=== PATIENT | female | born 1970 | race Two or more races ===

== ENCOUNTER 2019-08-17 18:36 | Emergency (ER) | payer MEDICAID ==
[~2019-08-17] VITALS: Ht 165.1 cm; Wt 75.7 kg
[2019-08-17 18:44] VITALS: BP 134/75
--- NOTE | 2019-08-17 18:47 | NUR ---
HYPOGASTRIC PAIN X 3 DAYS, WITH DYSURIA, PT AWAKE, ALERT, -SOB, NAD NOTED, VSS, PENDINDG MD GLEASON
[2019-08-17 19:03] LABS: APPEARANCE,URINE Clear (CLEAR); BILIRUBIN,URINE Negative (NEGATIVE); BLOOD, URINE Negative Ery/uL (NEGATIVE); COLOR,URINE Yellow (YELLOW); KETONES,URINE Negative (NEGATIVE); LEUKOCYTE ESTERASE ,URINE Negative (NEGATIVE); NITRITE, URINE Negative (NEGATIVE); PROTEIN,URINE Negative (NEGATIVE); UGLUCOSE Negative (NEGATIVE); UROBILINOGEN,URINE 0.2 EU/dL (0.2)
[2019-08-17 20:04] LABS: BASOPHILS # (AUTO) 0.1 /CMM (0.0-0.2); BASOPHILS % (AUTO) 0.7 % (0.0-2.0); EOSINOPHILS % (AUTO) 1.7 % (0.0-6.0); HEMATOCRIT 40 % (33-45); HEMOGLOBIN 13.4 g/dL (11.5-14.8); LYMPHOCYTES # (AUTO) 2.5 /CMM (0.8-4.8); LYMPHOCYTES % (AUTO) 34.7 % (20.0-44.0); MEAN CORPUSCULAR HGB CONC 34 g/dl (31.0-36.0); MEAN CORPUSCULAR VOLUME 93 fL (82-100); MONOCYTES # (AUTO) 0.7 /CMM (0.1-1.30); MONOCYTES % (AUTO) 9.6 % (2.0-12.0); NEUTROPHILS # (AUTO) 3.8 /CMM (1.8-8.9); NEUTROPHILS % (AUTO) 53.3 % (43.0-81.0); PLATELET COUNT (AUTO) 202 /CMM (150-450); RED BLOOD CELL COUNT(AUTO) 4.28 MIL/uL (4.0-5.2); WHITE BLOOD COUNT (AUTO) 7.1 K/uL (4.3-11.0)
[2019-08-17 20:14] LABS: CREATININE 0.9 mg/dL (0.6-1.3)
[2019-08-17 20:22] LABS: ALBUMIN 3.6 g/dL (3.4-5.0); BILIRUBIN,TOTAL 0.3 mg/dL (0.2-1.0); TOTAL PROTEIN, SERUM 7.1 g/dL (6.4-8.2)
--- NOTE | 2019-08-17 22:07 | NUR ---
Patient discharged to home in stable condition. Written and verbal after care instructions given. Patient verbalizes understanding of instruction.
== END 2019-08-17 22:07 | disposition home or self-care (01) ==
LOC: ER 18:45
DX: R10.84 Generalized abdominal pain (principal); K21.9 Gastro-esophageal reflux disease without esophagitis
CPT/HCPCS: 36415; 76856-TC; 80053-TC; 81000-TC; 84703-TC; 85025-TC

== ENCOUNTER 2020-03-01 20:32 | Emergency (ER) | payer MEDICAID ==
[~2020-03-01] VITALS: Ht 165.1 cm; Wt 76.2 kg
[2020-03-01 20:35] VITALS: BP 143/77
== END 2020-03-01 22:14 | disposition home or self-care (01) ==
LOC: ER 20:32
DX: S93.492A Sprain of other ligament of left ankle, initial encounter (principal); K21.9 Gastro-esophageal reflux disease without esophagitis; X50.1XXA Overexertion from prolonged static or awkward postures, initial encounter; Y93.01 Activity, walking, marching and hiking; Y92.89 Other specified places as the place of occurrence of the external cause; Y99.8 Other external cause status
CPT/HCPCS: 73610-TC; 73630-TC

== ENCOUNTER 2023-08-21 16:46 | Emergency (ER) | payer MEDICAID, OTHER ==
[~2023-08-21] VITALS: Ht 165.1 cm; Wt 73.9 kg
[2023-08-21 17:08] VITALS: TEMP 98.2
[2023-08-21] MEDS ORDERED: diphenhydrAMINE HCL 50 MG/ML VIAL ONE (17:49)
[2023-08-21] MEDS ORDERED: dexaMETHasone SOD PHOSPHATE 1 ML ONE (17:49)
[2023-08-21] MEDS ORDERED: METOCLOPRAMIDE HCL 10 MG/2 ML VIAL ONE (17:49)
[2023-08-21] MEDS ORDERED: KETOROLAC TROMETHAMINE 15 MG/ML VIAL ONE (17:49)
[2023-08-21] MEDS: IV NS 0.9% 1,000 ML BAG IV ONE (18:13)
[2023-08-21] MEDS: diphenhydrAMINE HCL 50 MG/ML VIAL IV ONE (18:13)
[2023-08-21] MEDS: KETOROLAC TROMETHAMINE 15 MG/ML VIAL IV ONE (18:14)
[2023-08-21] MEDS: dexaMETHasone SOD PHOSPHATE 10 MG/ML VIAL IV ONE (18:15)
[2023-08-21] MEDS: METOCLOPRAMIDE HCL 10 MG/2 ML VIAL IV ONE (18:16)
[2023-08-21] MEDS ORDERED: IBUP-1955 PO (19:57)
[2023-08-21 20:07] VITALS: BP 121/81; O2SAT 97
== END 2023-08-21 20:08 | disposition home or self-care (01) ==
LOC: ER 16:48
DX: J06.9 Acute upper respiratory infection, unspecified (principal); R09.81 Nasal congestion; R05.9 Cough, unspecified; R51.9 Headache, unspecified; K21.9 Gastro-esophageal reflux disease without esophagitis; Z20.822 Contact with and (suspected) exposure to COVID-19
CPT/HCPCS: 99284; 96374; 96375; 96361; 87426; 87804 ×2; J1100; J1200; J2765; J7030; J1885